=== PATIENT | male | born 1945 | race Caucasian/White ===

== ENCOUNTER 2021-05-26 13:56 | Inpatient (IN) | payer MEDICARE, OTHER ==
[2021-05-26] MEDS ORDERED: Tamsulosin 0.4 MG Cap.ER PO ONE (16:27)
[2021-05-26 17:09] LABS: ANION GAP 21.2 mEq/L (7-13)
[2021-05-26] MEDS ORDERED: Sodium Chloride 0.9% 1,000 ML IV ONE (17:52)
[2021-05-26] MEDS ORDERED: Sodium Chloride 0.9% 10 ML Syringe FLUSH PRN ×2 (17:52→19:00)
[2021-05-26] MEDS ORDERED: Finasteride 5 MG Tab PO ONE (18:01)
[2021-05-26] MEDS ORDERED: Ondansetron 4 MG/2 ML SDV IVPUSH PRN (19:00)
[2021-05-26] MEDS ORDERED: Acetaminophen 325 MG Tab PO PRN (19:00)
[2021-05-26] MEDS ORDERED: Potassium Chloride 10 MEQ Tab.ER PO ONE (19:04)
--- NOTE | 2021-05-26 19:10 | PCM.SN.2 ---
- Free Text/Narrative Note: START OF DOCTOR BLAIRE HISTORY AND PHYSICAL / CONSULTATION NOTE Chief Complaint: "I was unable to urinate" History of Present Illness: The patient is a 75-year-old male who presents with chief complaint of urinary retention. He states this has been a gradual worsening problem over the years leading up to his hospitalization. He states he was ultimately able to urinate a small amount on the day of hospitalization and he subsequently presented to the emergency department. The patient denies abdominal pain. He states on average she has 4 episodes of nocturia. He denies fever, rigors, nausea, vomiting, cough, wheeze, dyspnea, or any other constant complaints. In the emergency department a Ryder catheter was placed and a large amount of urine was drained. There was concern for post obstruction diuresis electrolyte abnormalities. He presents for further evaluation Surgical History: Right leg surgery Family History: Hypertension, hyperlipidemia Social History: Tobacco: Active smoker Alcohol: Drinks 2-3 beers nightly Caffeine: Coffee Drugs: Never Allergies: No known drug allergies Code Status: Full Pertinent Laboratory Results / Pertinent Radiology Results / Pertinent Diagnostic Results / Pertinent Vital Signs: Blood pressure 144/88, pulse 109, respiration 18, temperature 98.3 degrees, 94% room air, potassium 3.2, creatinine 2.55, white blood count 1.6, hemoglobin 13.5 Physical Examination: General: -Alert -No acute distress -No dyspnea -No tachypnea -Mildly to moderately tremulous Head: -Atraumatic -Normocephalic Eyes: -Pupils equally round and reactive to light and accommodation -Extraocular muscles intact Neurological: -Cranial nerves II-XII intact Neck: -No jugular venous distention -No thyromegaly -No cervical lymphadenopathy Heart: -iRegular rate -Regular rhythm -No murmurs -No gallops -No rubs Lungs: -No wheeze -No rhonchi -No rales Abdomen: -Normal bowel sounds in all four quadrants -No rebound -No guarding -No tenderness Extremities: -2/4 pulse in all four extremities -No clubbing -No cyanosis -Trace bipedal edema -No calf tenderness present bilaterally -Negative Homans sign bilaterally Musculoskeletal: -5/5 bilateral upper extremity strength -5/5 bilateral lower extremity strength -Sensorium of bilateral upper extremities are equal and intact -Sensorium of bilateral lower extremities are equal and intact Additional Details / Additional Findings / Exceptions / Miscellaneous: There are plaques present on bilateral shins which appears psoriatic in nature Assessment / Plan: Urinary retention, status post Ryder catheter placement. Flomax 0.4 mg p.o. daily plus Proscar 5 mg p.o. PSA level pending Microscopic hematuria. Outpatient follow-up with urology Acute renal insufficiency. May be sequelae of urinary retention. Will monitor creatinine level intermittently. Strict I's/O. IV normal saline 125 mils per hour Hypokalemia. Will monitor potassium levels intermittently and supplement as necessary Bilateral castillo plaques. Query psoriasis although this would be an unusual location. Outpatient follow-up with dermatology Anemia. Will monitor hemoglobin level intermittently. Check serum ferritin, iron panel, fecal occult blood Hyperlipidemia Hypertension Obesity. Patient becomes regarding lifestyle modification Smoker. Patient be counseled regarding smoking cessation DVT prophylaxis. Heparin 5000 units subcutaneously every 12 hours Disposition: Anticipate discharge within 24 to 48 hours or when the patient's creatinine no longer improves with IV hydration END OF DOCTOR EMAMIS HISTORY AND PHYSICAL / CONSULTATION NOTE
[2021-05-26] MEDS: Sodium Chloride 0.9% 1,000 ML IV SCH (20:05)
[2021-05-26] MEDS ORDERED: Magnesium Sulfate/Water 2 GM in Premix Bag 1 BAG IV SCH (20:07)
[2021-05-26] MEDS: Heparin Sodium 5,000 Units/ML Vial SUBCUT SCH (20:07)
[2021-05-26 22:29] LABS: ANION GAP 17.5 mEq/L (7-13)
[2021-05-27] MEDS: Sodium Chloride 0.9% 1,000 ML IV SCH ×2 (04:59→13:50)
[2021-05-27 07:07] LABS: ANION GAP 23.5 mEq/L (7-13)
--- NOTE | 2021-05-27 07:25 | PCM.SN.2 ---
- Free Text/Narrative Note: START OF DOCTOR EMAMIS PROGRESS NOTE Subjective: The patient endorses no complaints at this time. Overnight he denies fever, rigors, nausea, vomiting, cough, wheeze, abdominal pain, chest pain, dyspnea, or any other constitutional complaints. I explained to the patient his current medical condition and plan of care and I have answered all of his questions Objective: General: -Alert -No acute distress -No dyspnea -No tachypnea Heart: -iRegular rate -Regular rhythm -No murmurs -No gallops -No rubs Lungs: -Scant bilateral wheeze -No rhonchi -No rales Abdomen: -Normal bowel sounds in all four quadrants -No rebound -No guarding -No tenderness Extremities: -2/4 pulse in all four extremities -No clubbing -No cyanosis -No edema Additional Details / Additional Findings / Exceptions / Miscellaneous: There are bilateral plaques present on anterior shins Pertinent Laboratory Results / Pertinent Radiology Results / Pertinent Diagnostic Results / Pertinent Vital Signs: Heart rate 106 bpm, white blood cell count 10.8, hemoglobin 13.1, creatinine 1.77 Assessment / Plan: Urinary retention, status post Ryder catheter placement. Flomax 0.4 mg p.o. daily plus Proscar 5 mg p.o. PSA grossly elevated. Outpatient follow-up with urology upon discharge Microscopic hematuria. Outpatient follow-up with urology Hypomagnesemia. Will monitor magnesium levels intermittently and supplement as necessary Acute renal insufficiency. May be sequelae of urinary retention. Will monitor creatinine level intermittently. Strict I's/O. IV normal saline 125 mils per hour Hypokalemia. Will monitor potassium levels intermittently and supplement as necessary Bilateral castillo plaques. Query psoriasis although this would be an unusual location. Outpatient follow-up with dermatology Anemia of chronic disease. Will monitor hemoglobin level intermittently. Hyperlipidemia Hypertension Obesity. Patient becomes regarding lifestyle modification Smoker. Patient be counseled regarding smoking cessation DVT prophylaxis. Heparin 5000 units subcutaneously every 12 hours Disposition: We will recheck the patient's creatinine with BMP at 1500 on this date May 27, 2021. If it has normalized or is near being within normal limits, the patient will be a candidate for discharge END OF DOCTOR EMAMIS PROGRESS NOTE
[2021-05-27] MEDS ORDERED: Tamsulosin 0.4 MG Cap.ER PO SCH (08:30)
[2021-05-27] MEDS ORDERED: Finasteride 5 MG Tab PO SCH (09:00)
[2021-05-27] MEDS: Heparin Sodium 5,000 Units/ML Vial SUBCUT SCH (09:32)
[2021-05-27 15:25] LABS: ANION GAP 19.1 mEq/L (7-13)
--- NOTE | 2021-05-27 15:52 | PCM.SN.2 ---
- Free Text/Narrative Note: START OF DOCTOR EMAMIS DISCHARGE SUMMARY Date of Admission: May 26, 2021 Date of Discharge: 3:50 PM on May 27, 2021 Primary Diagnosis: Urinary retention, status post Ryder catheter placement with which the patient will be discharged Secondary Diagnosis: Microscopic hematuria Acute renal insufficiency, likely sequelae of urinary retention Hypokalemia, status post treatment Bilateral castillo plaques, query psoriasis Anemia of chronic disease Hyperlipidemia Hypertension Obesity Smoker Hypomagnesemia Consultations: None Condition on Discharge: Fair Disposition: The patient will be advised follow-up with dermatology within 2 weeks of discharge for his bilateral castillo plaques which I believe to be psoriasis. The patient Giselle that he already has an appointment scheduled The patient is advised follow-up with urology within 1 week of discharge for diagnosis of urinary retention as well as microscopic hematuria The patient will require nuclear medicine whole-body scan within 2 weeks of discharge for diagnosis of elevated PSA, query prostate cancer The patient will be discharged with catheter in place with saddlebag Discharge Medications: Zocor 20 mg p.o. nightly Metoprolol 100 mg p.o. twice daily Aspirin 81 mg p.o. daily Norvasc 5 mg p.o. daily Flomax 0.4 mg p.o. daily Proscar 5 mg p.o. daily END OF DOCTOR EMAMIS DISCHARGE SUMMARY
--- NOTE | 2021-05-28 15:04 | EDM.PDOC ---
Scribed by Clarita Coughlin 05/28/21 [id number] for Grayson Sung MD ED HPI GENERAL MEDICAL PROBLEM - General Chief Complaint: Genitourinary Problem Stated Complaint: TROUBLE URINATING Time Seen by Provider: 05/26/21 16:00 Source of Information: Reports: Patient History Limitations: Reports: No Limitations - History of Present Illness INITIAL COMMENTS - FREE TEXT/NARRATIVE: 75 y/o m C/O difficulty urinating for two weeks. Pt states he has intense pressure in his pelvis and is only able to void a small amount at a time. Hx of enlarged prostate but is not on any medications for it. Denies constipation, blood in urine, cp, db, abd pn, extremity pn. Onset: Gradual Duration: Week(s): Location: Reports: Pelvis Quality: Reports: Ache Severity: Severe Improves with: Reports: None Worsens with: Reports: None Penis Pain Score (Numeric/FACES): 5 - Related Data Allergies Allergy/AdvReac Type Severity Reaction Status Date / Time No Known Allergies Allergy Verified 05/26/21 15:23 Home Meds: Home Meds Aspirin 81 mg PO DAILY 05/26/21 [History] Metoprolol Tartrate 100 mg PO BID 05/26/21 [History] Simvastatin 20 mg PO DAILY 05/26/21 [History] amLODIPine [Norvasc] 5 mg PO DAILY 05/26/21 [History] Finasteride [Proscar] 5 mg PO DAILY 30 Days #30 tablet 05/27/21 [Rx] Tamsulosin [Flomax] 0.4 mg PO PCBREAKFAST 30 Days #30 cap.er 05/27/21 [Rx] Past Medical History HEENT History: Reports: None Cardiovascular History: Reports: High Cholesterol, Hypertension Respiratory History: Reports: None Gastrointestinal History: Reports: None Genitourinary History: Reports: Other (See Below) Other Genitourinary History: pt states he has had trouble urinating for a couple years Musculoskeletal History: Reports: None Neurological History: Reports: None Psychiatric History: Reports: None Endocrine/Metabolic History: Reports: None Hematologic History: Reports: None Immunologic History: Reports: None Oncologic (Cancer) History: Reports: None Dermatologic History: Reports: None, Psoriasis, Other (See Below) Other Dermatologic History: on legs - Infectious Disease History Infectious Disease History: Reports: None - Past Surgical History Head Surgeries/Procedures: Reports: None Social & Family History - Family History Family Medical History: No Pertinent Family History - Tobacco Use Tobacco Use Status *Q: Current Every Day Tobacco User Years of Tobacco use: 30 Packs/Tins Daily: 1 - Caffeine Use Caffeine Use: Reports: Coffee - Recreational Drug Use Recreational Drug Use: No ED ROS GENERAL - Review of Systems Review Of Systems: Comprehensive ROS is negative, except as noted in HPI. ED EXAM, RENAL/ - Physical Exam Exam: See Below Exam Limited By: No Limitations General Appearance: Alert, Obese Throat/Mouth: Normal Voice, No Airway Compromise Head: Atraumatic, Normocephalic Respiratory/Chest: No Respiratory Distress, Lungs Clear, Normal Breath Sounds, No Accessory Muscle Use, Chest Non-Tender Cardiovascular: Normal Peripheral Pulses, Regular Rate, Rhythm, No Edema, No Gallop, No JVD, No Murmur, No Rub GI/Abdominal: Soft, Non-Tender. No: Guarding, Rigid, Rebound (Male) Exam: No Hernia, Other (no testicular masses, no penile lesions, enlarged firm non tender prostate. ) Back Exam: No: CVA Tenderness (L), CVA Tenderness (R) Extremities: Normal Inspection Neurological: Alert, Oriented, No Motor/Sensory Deficits Psychiatric: Normal Affect, Normal Mood Skin Exam: Warm, Dry, Intact, Normal Color, No Rash Course - Vital Signs Last Recorded V/S: Last Vital Signs Temp 97.9 F 05/27/21 11:55 Pulse 107 H 05/27/21 11:55 Resp 16 05/27/21 11:55 BP 143/78 H 05/27/21 11:55 Pulse Ox 95 05/27/21 11:55 - Orders/Labs/Meds Labs: Laboratory Tests 05/26/21 05/26/21 05/26/21 Range/Units 16:40 16:51 16:51 WBC 11.6 H (5.0-10.0) 10^3/uL RBC 4.27 L (4.6-6.2) 10^6/uL Hgb 13.5 L (14.0-18.0) g/dL Hct 38.8 L (40.0-54.0) % MCV 90.9 (80-100) fL MCH 31.6 (27.0-34.0) pg MCHC 34.8 (33.0-35.0) g/dL Plt Count 343 (150-450) 10^3/uL Neut % (Auto) 73.3 (42.2-75.2) % Lymph % (Auto) 11.0 L (20.5-50.1) % Mccreary % (Auto) 14.9 H (2-8) % Eos % (Auto) 0.3 L (1.0-3.0) % Baso % (Auto) 0.5 (0.0-1.0) % Sodium 136 (136-145) mmol/L Potassium 3.2 L (3.5-5.1) mmol/L Chloride 99 (98-107) mmol/L Carbon Dioxide 19 L (21-32) mmol/L Anion Gap 21.2 H (7-13) mEq/L BUN 38 H (7-18) mg/dL Creatinine 2.55 H (0.70-1.30) mg/dL Est Cr Clr Drug Dosing 24.26 mL/min Estimated GFR (MDRD) 25 Glucose 127 H (70-99) mg/dL Calcium 9.0 (8.5-10.1) mg/dL Phosphorus (2.6-4.7) mg/dL Magnesium (1.8-2.4) mg/dL Iron (65-175) ug/dL TIBC (250-450) ug/dL % Saturation (20.0-50.0) % Ferritin (26-388) mg/mL PSA Screen (0.00-4.00) ng/mL Free T4 (0.76-1.46) ng/dL TSH, Ultra Sensitive (0.36-3.74) uIU/mL Urine Color Clarissa (YELLOW) Urine Appearance Turbid (CLEAR) Urine pH 6.0 (5.0-9.0) Ur Specific [place] 1.020 (1.005-1.030) Urine Protein 100 H (NEGATIVE) Urine Glucose (UA) Negative (NEGATIVE) Urine Ketones Negative (NEGATIVE) Urine Occult Blood Large H (NEGATIVE) Urine Nitrite Negative (NEGATIVE) Urine Bilirubin Negative (NEGATIVE) Urine Urobilinogen 0.2 (0.2-1.0) mg/dL Ur Leukocyte Esterase Negative (NEGATIVE) Urine RBC >100 H (0-5) /HPF Urine WBC 0-5 (0-5/HPF) /HPF Ur Epithelial Cells Rare (NOT SEEN) /HPF Amorphous Sediment Few (NOT SEEN) /HPF Urine Bacteria Rare (0-FEW/HPF) /HPF Urine Mucus Few H (NOT SEEN) /LPF SARS-CoV-2 RNA (DICK) (NEGATIVE) 05/26/21 05/26/21 05/26/21 Range/Units 16:51 16:51 16:51 WBC (5.0-10.0) 10^3/uL RBC (4.6-6.2) 10^6/uL Hgb (14.0-18.0) g/dL Hct (40.0-54.0) % MCV (80-100) fL MCH (27.0-34.0) pg MCHC (33.0-35.0) g/dL Plt Count (150-450) 10^3/uL Neut % (Auto) (42.2-75.2) % Lymph % (Auto) (20.5-50.1) % Mccreary % (Auto) (2-8) % Eos % (Auto) (1.0-3.0) % Baso % (Auto) (0.0-1.0) % Sodium (136-145) mmol/L Potassium (3.5-5.1) mmol/L Chloride (98-107) mmol/L Carbon Dioxide (21-32) mmol/L Anion Gap (7-13) mEq/L BUN (7-18) mg/dL Creatinine (0.70-1.30) mg/dL Est Cr Clr Drug Dosing mL/min Estimated GFR (MDRD) Glucose (70-99) mg/dL Calcium (8.5-10.1) mg/dL Phosphorus 4.4 (2.6-4.7) mg/dL Magnesium 1.7 L (1.8-2.4) mg/dL Iron 14 L (65-175) ug/dL TIBC 155 L (250-450) ug/dL % Saturation 9.0 L (20.0-50.0) % Ferritin 976 H (26-388) mg/mL PSA Screen 31.39 H (0.00-4.00) ng/mL Free T4 1.40 (0.76-1.46) ng/dL TSH, Ultra Sensitive 0.85 (0.36-3.74) uIU/mL Urine Color (YELLOW) Urine Appearance (CLEAR) Urine pH (5.0-9.0) Ur Specific [place] (1.005-1.030) Urine Protein (NEGATIVE) Urine Glucose (UA) (NEGATIVE) Urine Ketones (NEGATIVE) Urine Occult Blood (NEGATIVE) Urine Nitrite (NEGATIVE) Urine Bilirubin (NEGATIVE) Urine Urobilinogen (0.2-1.0) mg/dL Ur Leukocyte Esterase (NEGATIVE) Urine RBC (0-5) /HPF Urine WBC (0-5/HPF) /HPF Ur Epithelial Cells (NOT SEEN) /HPF Amorphous Sediment (NOT SEEN) /HPF Urine Bacteria (0-FEW/HPF) /HPF Urine Mucus (NOT SEEN) /LPF SARS-CoV-2 RNA (DICK) (NEGATIVE) 05/26/21 Range/Units 18:15 WBC (5.0-10.0) 10^3/uL RBC (4.6-6.2) 10^6/uL Hgb (14.0-18.0) g/dL Hct (40.0-54.0) % MCV (80-100) fL MCH (27.0-34.0) pg MCHC (33.0-35.0) g/dL Plt Count (150-450) 10^3/uL Neut % (Auto) (42.2-75.2) % Lymph % (Auto) (20.5-50.1) % Mccreary % (Auto) (2-8) % Eos % (Auto) (1.0-3.0) % Baso % (Auto) (0.0-1.0) % Sodium (136-145) mmol/L Potassium (3.5-5.1) mmol/L Chloride (98-107) mmol/L Carbon Dioxide (21-32) mmol/L Anion Gap (7-13) mEq/L BUN (7-18) mg/dL Creatinine (0.70-1.30) mg/dL Est Cr Clr Drug Dosing mL/min Estimated GFR (MDRD) Glucose (70-99) mg/dL Calcium (8.5-10.1) mg/dL Phosphorus (2.6-4.7) mg/dL Magnesium (1.8-2.4) mg/dL Iron (65-175) ug/dL TIBC (250-450) ug/dL % Saturation (20.0-50.0) % Ferritin (26-388) mg/mL PSA Screen (0.00-4.00) ng/mL Free T4 (0.76-1.46) ng/dL TSH, Ultra Sensitive (0.36-3.74) uIU/mL Urine Color (YELLOW) Urine Appearance (CLEAR) Urine pH (5.0-9.0) Ur Specific [place] (1.005-1.030) Urine Protein (NEGATIVE) Urine Glucose (UA) (NEGATIVE) Urine Ketones (NEGATIVE) Urine Occult Blood (NEGATIVE) Urine Nitrite (NEGATIVE) Urine Bilirubin (NEGATIVE) Urine Urobilinogen (0.2-1.0) mg/dL Ur Leukocyte Esterase (NEGATIVE) Urine RBC (0-5) /HPF Urine WBC (0-5/HPF) /HPF Ur Epithelial Cells (NOT SEEN) /HPF Amorphous Sediment (NOT SEEN) /HPF Urine Bacteria (0-FEW/HPF) /HPF Urine Mucus (NOT SEEN) /LPF SARS-CoV-2 RNA (DICK) Negative (NEGATIVE) Meds: Medications Discontinued Medications Generic Name Dose Route Start Last Admin Trade Name Freq PRN Reason Stop Dose Admin Acetaminophen 650 mg 05/26/21 19:00 Acetaminophen 325 Mg Tab PO Q4H PRN Pain (Mild 1-3)/fever Finasteride 5 mg 05/26/21 18:01 05/26/21 18:51 Finasteride 5 Mg Tab PO 05/26/21 18:02 5 mg ONETIME ONE Administration Finasteride 5 mg 05/27/21 09:00 05/27/21 09:31 Finasteride 5 Mg Tab PO 5 mg DAILY PATRICE Administration Heparin Sodium (Porcine) 5,000 units 05/26/21 21:00 05/27/21 09:32 Heparin Sodium 5,000 Units/Ml Vial SUBCUT 5,000 units Q12HR PATRICE Administration Sodium Chloride 1,000 mls @ 999 mls/hr 05/26/21 17:52 05/26/21 20:06 Normal Saline IV 05/26/21 18:52 125 mls/hr .BOLUS ONE Infusion Sodium Chloride 1,000 mls @ 125 mls/hr 05/26/21 19:00 05/27/21 13:50 Normal Saline IV 125 mls/hr ASDIRECTED PATRICE Administration Magnesium Sulfate 2 gm/ Premix 50 mls @ 25 mls/hr 05/26/21 20:07 05/26/21 20:36 IV 05/26/21 22:06 25 mls/hr Q2H PATRICE Administration Ondansetron HCl 4 mg 05/26/21 19:00 Ondansetron 4 Mg/2 Ml Sdv IVPUSH Q4H PRN Nausea/Vomiting Potassium Chloride 40 meq 05/26/21 19:04 05/26/21 20:04 Potassium Chloride 10 Meq Tab.Er PO 05/26/21 19:05 40 meq ONETIME ONE Administration Sodium Chloride 10 ml 05/26/21 17:52 Sodium Chloride 0.9% 10 Ml Syringe FLUSH ASDIRECTED PRN Keep Vein Open Sodium Chloride 10 ml 05/26/21 19:00 Sodium Chloride 0.9% 10 Ml Syringe FLUSH ASDIRECTED PRN Keep Vein Open Tamsulosin HCl 0.4 mg 05/26/21 16:27 05/26/21 17:00 Tamsulosin 0.4 Mg Cap.Er PO 05/26/21 16:28 0.4 mg ONETIME ONE Administration Tamsulosin HCl 0.4 mg 05/27/21 08:30 05/27/21 09:32 Tamsulosin 0.4 Mg Cap.Er PO 0.4 mg PCBREAKFAST PATRICE Administration Departure - Departure Time of Disposition: 18:00 Disposition: Admitted As Inpatient 64 Condition: Fair Clinical Impression: Retention of urine - Discharge Information *PRESCRIPTION DRUG MONITORING PROGRAM REVIEWED*: Not Applicable *COPY OF PRESCRIPTION DRUG MONITORING REPORT IN PATIENT JEWEL: Not Applicable Sepsis Event Note (ED) - Evaluation Sepsis Screening Result: No Definite Risk I have read and agree with the documentation that has been completed regarding this visit. By signing this record, I attest that the documentation was completed in my physical presence and is an accurate record of the encounter.
== END 2021-05-27 17:30 | disposition home or self-care (01) | DRG 684 ==
LOC: DL.ED 13:56 → UNDOADMIN 18:41 → DL.MS 18:41 → DL.ED 18:42 → DL.MS 05-27 10:22 → UNDODISIN 05-27 17:30
PROVIDERS: ADMIT Internal Medicine; ATTEND Internal Medicine
DX: N17.9 Acute kidney failure, unspecified (principal); R33.9 Retention of urine, unspecified; R31.29 Other microscopic hematuria; E87.6 Hypokalemia; D63.8 Anemia in other chronic diseases classified elsewhere; E78.5 Hyperlipidemia, unspecified; E78.00 Pure hypercholesterolemia, unspecified; I10 Essential (primary) hypertension; E66.9 Obesity, unspecified; L40.0 Psoriasis vulgaris; E83.42 Hypomagnesemia; F17.210 Nicotine dependence, cigarettes, uncomplicated; Z20.822 Contact with and (suspected) exposure to COVID-19; Z79.82 Long term (current) use of aspirin; Z98.890 Other specified postprocedural states; Z79.899 Other long term (current) drug therapy; Z68.38 Body mass index [BMI] 38.0-38.9, adult
CPT/HCPCS: 36415; 51702; 80048; 80053; 81001; 82728; 83540; 83550; 83735; 84100; 84439; 84443; 85025; 99284; 99284-25; A9270-GY; G0103; J1644; J3475; J7030; U0002

== ENCOUNTER 2021-05-29 10:13 | Emergency (ER) | payer MEDICARE, OTHER ==
--- NOTE | 2021-05-29 10:50 | EDM.PDOC ---
ED HPI GENERAL MEDICAL PROBLEM - General Stated Complaint: [id number] ISSUES WITH CATHITER NOT WORKING Time Seen by Provider: 05/29/21 10:50 Source of Information: Reports: Patient, Old Records, RN, RN Notes Reviewed History Limitations: Reports: No Limitations - History of Present Illness INITIAL COMMENTS - FREE TEXT/NARRATIVE: Ashu is a 75 y/o male who presents to the ED via personal vehicle for complai nts of urinary retention with Ryder catheter in place. The patient states the catheter was placed during his hospitalization on 05/26/21, he notes it was draining appropriately upon discharge on 05/27/21. He notes the drainage bag had not filled at all since he has been at home. He denies fever, shaking chills, palpitations, or flank pain. He does attest to suprapubic tenderness that has significantly improved since the catheter was changed out by ED staff upon triage. The patient has had 3000cc+ out of his Ryder catheter in this time. - Related Data Allergies Allergy/AdvReac Type Severity Reaction Status Date / Time No Known Allergies Allergy Verified 05/26/21 15:23 Home Meds: Home Meds Aspirin 81 mg PO DAILY 05/26/21 [History] Metoprolol Tartrate 100 mg PO BID 05/26/21 [History] Simvastatin 20 mg PO DAILY 05/26/21 [History] amLODIPine [Norvasc] 5 mg PO DAILY 05/26/21 [History] Finasteride [Proscar] 5 mg PO DAILY 30 Days #30 tablet 05/27/21 [Rx] Tamsulosin [Flomax] 0.4 mg PO PCBREAKFAST 30 Days #30 cap.er 05/27/21 [Rx] Past Medical History HEENT History: Reports: None Cardiovascular History: Reports: High Cholesterol, Hypertension Respiratory History: Reports: None Gastrointestinal History: Reports: None Genitourinary History: Reports: Prostate Disorder, Other (See Below) Other Genitourinary History: pt states he has had trouble urinating for a couple years Musculoskeletal History: Reports: None Neurological History: Reports: None Psychiatric History: Reports: None Endocrine/Metabolic History: Reports: Obesity/BMI 30+ Hematologic History: Reports: None Immunologic History: Reports: None Oncologic (Cancer) History: Reports: None Dermatologic History: Reports: None, Psoriasis, Other (See Below) Other Dermatologic History: on legs - Infectious Disease History Infectious Disease History: Reports: None, Chicken Pox, Measles, Shingles - Past Surgical History Head Surgeries/Procedures: Reports: None Social & Family History - Family History Family Medical History: No Pertinent Family History - Caffeine Use Caffeine Use: Reports: Coffee Other Caffeine Use: 1-2 cups/day ED ROS GENERAL - Review of Systems Review Of Systems: Comprehensive ROS is negative, except as noted in HPI. ED EXAM, GENERAL - Physical Exam Exam: See Below Exam Limited By: No Limitations General Appearance: Alert, No Apparent Distress Eye Exam: Bilateral Eye: EOMI, Normal Inspection, PERRL (3mm) Ears: Normal External Exam, Hearing Grossly Normal Nose: Normal Inspection, Normal Mucosa, No Blood Throat/Mouth: Normal Inspection, Normal Oropharynx, Normal Voice, No Airway Compromise Head: Atraumatic, Normocephalic Neck: Normal Inspection, Supple, Non-Tender, Full Range of Motion Respiratory/Chest: No Respiratory Distress, Lungs Clear, Normal Breath Sounds, No Accessory Muscle Use, Chest Non-Tender Cardiovascular: Normal Peripheral Pulses, Regular Rate, Rhythm, No Edema, No Gallop, No JVD, No Murmur, No Rub Peripheral Pulses: 2+: Radial (L), Radial (R) GI/Abdominal: Normal Bowel Sounds, Soft, No Distention, No Abnormal Bruit, No Mass, Pelvis Stable, Tender (To suprapubic region). No: Guarding, Rigid, Rebound (Male) Exam: Deferred Rectal (Males) Exam: Deferred Back Exam: Normal Inspection, Full Range of Motion. No: CVA Tenderness (L), CVA Tenderness (R) Extremities: Other (Large white plaques to bilateral anterior lower legs) Neurological: Alert, Oriented, CN II-XII Intact, Normal Cognition, Normal Gait, No Motor/Sensory Deficits Psychiatric: Normal Affect, Normal Mood Skin Exam: Warm, Dry, Intact, Normal Color, No Rash, Other (See above). No: Cyanosis, Jaundice, Mottled, Pallor Course - Vital Signs Last Recorded V/S: Last Vital Signs Temp 97.2 F 05/29/21 10:46 Pulse 77 05/29/21 10:46 Resp 16 05/29/21 10:46 BP 142/66 H 05/29/21 10:46 Pulse Ox 98 05/29/21 10:46 - Orders/Labs/Meds Labs: Laboratory Tests 05/29/21 Range/Units 10:34 Urine Color Brown (YELLOW) Urine Appearance Cloudy (CLEAR) Urine pH 6.0 (5.0-9.0) Ur Specific [place] 1.020 (1.005-1.030) Urine Protein 100 H (NEGATIVE) Urine Glucose (UA) Negative (NEGATIVE) Urine Ketones Negative (NEGATIVE) Urine Occult Blood Large H (NEGATIVE) Urine Nitrite Negative (NEGATIVE) Urine Bilirubin Negative (NEGATIVE) Urine Urobilinogen 0.2 (0.2-1.0) mg/dL Ur Leukocyte Esterase Small H (NEGATIVE) Urine RBC >100 H (0-5) /HPF Urine WBC 10-20 H (0-5/HPF) /HPF Urine Bacteria Few (0-FEW/HPF) /HPF - Re-Assessments/Exams Free Text/Narrative Re-Assessment/Exam: 05/29/21 New Ryder catheter placed without complication. 3000cc+ immediately drained from new catheter. UA sent. Findings of examination and lab work reviewed with patient. Will treat empirically with Macrobid. Discussed need for follow up with primary care provider, as well as keeping previously scheduled appointments with specialists. Red flag signs and symptoms which would warrant reevaluation reviewed. Patient verbalized understanding and agreement with the plan of care. Departure - Departure Time of Disposition: 11:25 Disposition: Home, Self-Care 01 Condition: Good Clinical Impression: Urinary tract infection Qualifiers: Urinary tract infection type: acute cystitis Hematuria presence: with hematuria Qualified Code(s): N30.01 - Acute cystitis with hematuria Complication, blocked Ryder catheter Qualifiers: Encounter type: initial encounter Qualified Code(s): T83.091A - Other mechanical complication of indwelling urethral catheter, initial encounter - Discharge Information *PRESCRIPTION DRUG MONITORING PROGRAM REVIEWED*: Not Applicable *COPY OF PRESCRIPTION DRUG MONITORING REPORT IN PATIENT JEWEL: Not Applicable Instructions: Urinary Tract Infection, Adult Forms: ED Department Discharge Additional Instructions: Rx: Macrobid 1.) Take all of your antibiotics until gone. 2.) Keep appointments with your primary care provider and urologists. 3.) Drink plenty of water to stay hydrated. 4.) Follow up with your primary care provider, or return to the emergency department, with additional complications with Ryder catheter. Sepsis Event Note (ED) - Focused Exam Vital Signs: Vital Signs Temp Pulse Resp BP Pulse Ox 05/29/21 10:46 97.2 F 77 16 142/66 H 98
== END 2021-05-29 11:39 | disposition home or self-care (01) ==
LOC: DL.ED 10:13
DX: T83.098A Other mechanical complication of other urinary catheter, initial encounter (principal); N30.01 Acute cystitis with hematuria; I10 Essential (primary) hypertension; E78.00 Pure hypercholesterolemia, unspecified; E66.9 Obesity, unspecified; Z79.82 Long term (current) use of aspirin; Z79.899 Other long term (current) drug therapy
CPT/HCPCS: 51702; 81001; 99283; 99283-25

== ENCOUNTER 2021-08-29 08:10 | Emergency (ER) | payer MEDICARE, OTHER ==
--- NOTE | 2021-08-29 09:25 | EDM.PDOC ---
ED HPI GENERAL MEDICAL PROBLEM - General Chief Complaint: Genitourinary Problem Stated Complaint: [id number] CATHATER NOT WORKING PAIN Time Seen by Provider: 08/29/21 09:10 Source of Information: Reports: Patient History Limitations: Reports: No Limitations - History of Present Illness INITIAL COMMENTS - FREE TEXT/NARRATIVE: This 76 yo male patient reports to the ED due to increased lower abdominal pressure and pain. The patient reports he has had similar symptoms in the past, but had his catheter replaced within the past week. The patient reports he has been treated for a UTI in the past, but does not remember when he was actually treated. Onset: Today Duration: Constant Location: Reports: Abdomen Quality: Reports: Pressure, Same as Previous Episode Severity: Severe Improves with: Reports: None Worsens with: Reports: None Context: Reports: Other Associated Symptoms: Reports: No Other Symptoms bladder Pain Score (Numeric/FACES): 5 - Related Data Allergies Allergy/AdvReac Type Severity Reaction Status Date / Time No Known Allergies Allergy Verified 08/29/21 09:14 Home Meds: Home Meds Aspirin 81 mg PO DAILY 05/26/21 [History] Metoprolol Tartrate 100 mg PO BID 05/26/21 [History] Simvastatin 20 mg PO DAILY 05/26/21 [History] amLODIPine [Norvasc] 5 mg PO DAILY 05/26/21 [History] Finasteride [Proscar] 5 mg PO DAILY 30 Days #30 tablet 05/27/21 [Rx] Tamsulosin [Flomax] 0.4 mg PO PCBREAKFAST 30 Days #30 cap.er 05/27/21 [Rx] Past Medical History HEENT History: Reports: None Cardiovascular History: Reports: High Cholesterol, Hypertension Respiratory History: Reports: None Gastrointestinal History: Reports: None Genitourinary History: Reports: Prostate Disorder, Other (See Below) Other Genitourinary History: pt states he has had trouble urinating for a couple years Musculoskeletal History: Reports: None Neurological History: Reports: None Psychiatric History: Reports: None Endocrine/Metabolic History: Reports: Obesity/BMI 30+ Hematologic History: Reports: None Immunologic History: Reports: None Oncologic (Cancer) History: Reports: None Dermatologic History: Reports: None, Psoriasis, Other (See Below) Other Dermatologic History: on legs - Infectious Disease History Infectious Disease History: Reports: None, Chicken Pox, Measles, Shingles - Past Surgical History Head Surgeries/Procedures: Reports: None Social & Family History - Family History Family Medical History: No Pertinent Family History - Caffeine Use Caffeine Use: Reports: None Other Caffeine Use: 1-2 cups/day ED ROS GENERAL - Review of Systems Review Of Systems: Comprehensive ROS is negative, except as noted in HPI. ED EXAM, RENAL/ - Physical Exam Exam: See Below Exam Limited By: No Limitations General Appearance: Alert, WD/WN, Moderate Distress Eye Exam: Bilateral Eye: EOMI, Normal Inspection, PERRL Ears: Normal External Exam Nose: Normal Inspection, Normal Mucosa, No Blood Throat/Mouth: Normal Inspection, Normal Lips, Normal Teeth, Normal Gums, Normal Oropharynx, Normal Voice, No Airway Compromise Head: Atraumatic, Normocephalic Neck: Normal Inspection, Supple, Non-Tender, Full Range of Motion Respiratory/Chest: No Respiratory Distress, Lungs Clear, Normal Breath Sounds, No Accessory Muscle Use, Chest Non-Tender Cardiovascular: Normal Peripheral Pulses, Regular Rate, Rhythm, No Edema, No Gallop, No JVD, No Murmur, No Rub GI/Abdominal: Tender (initially tender, but after urine was removed via catheter the patient had no pain or symptoms) (Male) Exam: Deferred Rectal (Males) Exam: Deferred Back Exam: Normal Inspection, Full Range of Motion, NT Extremities: Normal Inspection, Normal Range of Motion, Non-Tender, Normal Capillary Refill, No Pedal Edema Neurological: Alert, Oriented, CN II-XII Intact, Normal Cognition, Normal Gait, Normal Reflexes, No Motor/Sensory Deficits Psychiatric: Normal Affect, Normal Mood Skin Exam: Warm, Dry, Intact, Normal Color, No Rash Lymphatic: No Adenopathy Course - Vital Signs Last Recorded V/S: Last Vital Signs Temp 98.9 F 08/29/21 08:32 Pulse 81 08/29/21 08:32 Resp 18 08/29/21 08:32 BP 155/88 H 08/29/21 08:32 Pulse Ox 92 L 08/29/21 08:32 - Orders/Labs/Meds Orders: Active Orders 24 hr Category Date Time Status CULTURE URINE [RM] Urgent Lab 08/29/21 09:00 Received UA W/MICROSCOPIC [URIN] Urgent Lab 08/29/21 09:00 Results Labs: Laboratory Tests 11/13/21 Range/Units 09:00 Urine Color Yellow (YELLOW) Urine Appearance Cloudy (CLEAR) Urine pH 6.5 (5.0-9.0) Ur Specific [place] 1.025 (1.005-1.030) Urine Protein 30 H (NEGATIVE) Urine Glucose (UA) Negative (NEGATIVE) Urine Ketones Negative (NEGATIVE) Urine Occult Blood Moderate H (NEGATIVE) Urine Nitrite Positive H (NEGATIVE) Urine Bilirubin Negative (NEGATIVE) Urine Urobilinogen 0.2 (0.2-1.0) mg/dL Ur Leukocyte Esterase Large H (NEGATIVE) Meds: Medications Discontinued Medications Generic Name Dose Route Start Last Admin Trade Name Freq PRN Reason Stop Dose Admin Ciprofloxacin 500 mg 08/29/21 09:26 Ciprofloxacin 500 Mg Tab PO 08/29/21 09:27 ONETIME ONE Departure - Departure Time of Disposition: :30 Disposition: Home, Self-Care 01 Condition: Fair Clinical Impression: UTI, Urinary tract infectious disease Complication, blocked Ryder catheter Qualifiers: Encounter type: initial encounter Qualified Code(s): T83.091A - Other mechanical complication of indwelling urethral catheter, initial encounter - Discharge Information *PRESCRIPTION DRUG MONITORING PROGRAM REVIEWED*: Not Applicable *COPY OF PRESCRIPTION DRUG MONITORING REPORT IN PATIENT JEWEL: Not Applicable Instructions: Urinary Tract Infection, Adult, [id number] Forms: ED Department Discharge Care Plan Goals: The patient was advised of the examination and lab results during the visit. The patient's catheter was replaced during the visit and urine drained. The patient was given an oral dose of Cipro (500 mg) while in the ED. The patient was discharged with a script for Cipro (500 mg) #14 to take 1 by mouth 2 times per day for 7 days. If the patient has any additional symptoms or concerns, the patient should either return to the emergency department or visit his primary care facility. Sepsis Event Note (ED) - Evaluation Sepsis Screening Result: No Definite Risk - Focused Exam Vital Signs: Vital Signs Temp Pulse Resp BP Pulse Ox 08/29/21 08:32 98.9 F 81 18 155/88 H 92 L - My Orders Last 24 Hours: My Active Orders 08/29/21 09:00 CULTURE URINE [RM] Urgent UA W/MICROSCOPIC [URIN] Urgent - Assessment/Plan Last 24 Hours: My Active Orders 08/29/21 09:00 CULTURE URINE [RM] Urgent UA W/MICROSCOPIC [URIN] Urgent
[2021-08-29] MEDS ORDERED: Ciprofloxacin 500 MG Tab PO ONE (09:26)
== END 2021-08-29 09:58 | disposition home or self-care (01) ==
LOC: DL.ED 08:10
DX: T83.098A Other mechanical complication of other urinary catheter, initial encounter (principal); N39.0 Urinary tract infection, site not specified; E78.00 Pure hypercholesterolemia, unspecified; I10 Essential (primary) hypertension; E66.9 Obesity, unspecified; Z68.32 Body mass index [BMI] 32.0-32.9, adult; Z79.82 Long term (current) use of aspirin; Z79.899 Other long term (current) drug therapy
CPT/HCPCS: 51702; 81001; 87086; 87088; 87186; 99284; A9270-GY

== ENCOUNTER 2021-08-30 09:08 | Emergency (ER) | payer MEDICARE, OTHER | END 2021-08-30 11:18 | disposition home or self-care (01) | LOC: DL.ED 09:08 | DX: T83.091A Other mechanical complication of indwelling urethral catheter, initial encounter (principal); T83.511A Infection and inflammatory reaction due to indwelling urethral catheter, initial encounter; N39.0 Urinary tract infection, site not specified; E78.00 Pure hypercholesterolemia, unspecified; I10 Essential (primary) hypertension; E66.9 Obesity, unspecified; Z68.32 Body mass index [BMI] 32.0-32.9, adult; Z79.82 Long term (current) use of aspirin; Z79.899 Other long term (current) drug therapy; Z72.0 Tobacco use | CPT/HCPCS: 99283 ==

== ENCOUNTER 2022-05-15 10:40 | Emergency (ER) | payer MEDICARE, OTHER | END 2022-05-15 12:15 | disposition home or self-care (01) | LOC: DL.ED 10:40 | DX: T83.091A Other mechanical complication of indwelling urethral catheter, initial encounter (principal); R33.9 Retention of urine, unspecified; E78.00 Pure hypercholesterolemia, unspecified; I10 Essential (primary) hypertension; E66.9 Obesity, unspecified; Z68.33 Body mass index [BMI] 33.0-33.9, adult; Z79.82 Long term (current) use of aspirin; Z79.899 Other long term (current) drug therapy | CPT/HCPCS: 51702; 81001; 87086; 87088; 87186; 99283; 99284 ==